=== PATIENT | male | born 1975 | race Native Hawaiian/Other Pacific Islander ===

== ENCOUNTER 2022-11-05 03:24 | Emergency (ER) | payer SELFPAY ==
[2022-11-05] VITALS (19 sets, daily range): BP systolic 130–150; BP diastolic 87–118; PULSE 86–110; RESP 14–39; TEMP 37; O2SAT 98
--- NOTE | 2022-11-05 03:15 | RT.EKG_ITS ---
APPROVED REPORT Exam: Resting ECG Reason for Exam: short of breath Patient Location: E HR:101 bpm ECG Measurements Heart Rate 101 AXIS SD 154 P 38 QRSd 84 QRS 51 QT 346 T 14 QTc 450 Conclusion Sinus tachycardia. Probable left atrial enlargement.
--- NOTE | 2022-11-05 03:30 | DI.RAD_ITS ---
Exam(s) XR PORTABLE CHEST AP EXAM: XR PORTABLE CHEST AP CLINICAL HISTORY: cough, fever TECHNIQUE: 2D digital imaging was performed of the chest. One image was obtained. An AP view was ob tained. COMPARISON: No exams were available for comparison FINDINGS: MEDIASTINUM: Normal. HEART: Normal. PULMONARY VASCULATURE: Normal. LUNGS: Clear. PLEURAL SPACE: No pleural effusion or pneumothorax. BONE:Within normal limits for the patient's age. OTHER FINDINGS:Normal. IMPRESSION: No acute pulmonary findings. DATA REPOSITORY: RADIATION DOSE DELIVERED:
--- NOTE | 2022-11-05 03:35 | ED.GENADUL_ITS ---
Discharge Plan Disposition Patient Disposition: Home Condition: Improving Discharge Details Clinical Impression: Influenza A Primary Care Provider: [facility] Provider: Alex Thompson Home Meds and New Rx's Prescriptions: New codeine sulfate 15 mg tablet 15 mg PO TID PRN (Reason: cough) Qty: 10 0RF Discharge Instructions Instructions: Influenza (ED) Additional Instructions: Your work-up was positive for influenza A. Small, frequent sips of fluids to maintain hydration. Tylenol and/or ibuprofen as needed for aches, pains or fever. Use codeine as prescribed if needed for persistent coughing and for rest. Return to the emergency department for any acute concerns. Medical Decision Making 47-year-old male presents from home via EMS. He has had 5 days of upper respiratory illness with cough, congestion, fever and chills, mild headache. Tonight he had a coughing episode and had a near syncopal episode which caused him to panic and call 911. EMS evaluated the patient and brought him to the ER. He arrives afebrile with a pulse of approximately 100 blood pressure 149/95 and oxygenation is 98% on room air. 's includes pneumonia, bronchitis, dehydration. Patient IV access established, screening labs obtained and referred for viral testing and chest x-ray. Chest x-ray without focal infiltrate and no acute disease. Patient noted to have white count of 10, hematocrit 49, platelets 220. Sodium slightly low at 128, potassium 3.3, chloride 89, bicarb 23, BUN 16, creatinine 1.0. Glucose slightly elevated at 278. Magnesium 1.6 and supplemented in the ER. Troponin negative. Patient positive for influenza A. He is improved following IV fluids. He requests antitussive for comfort at home. He is stable and improved at this time. HPI General Mode of arrival: EMS . Date/Time Provider Initiated Documentation: 11/05/22 03:37 . Limitations to Documentation: no limitations . Information obtained by: patient and EMS . History of Present Illness 47 year old M presents to the emergency department with the chief complaint of 5 days upper respiratory illness with fever and cough, possible syncopex1, described as moderate, and is localized to the chest. Patient reports no radiation. Patient started experiencing this day(s) and it has been intermittent. No relieving factors improve symptom(s), No exacerbating factors reported . Patient notes cough, fever/chills, headaches, malaise and syncope; denies confusion, chest pain and seizure. Patient did receive the following treatments prior to arrival, NSAID Related Data Home Medications Medication Instructions Recorded Confirmed codeine sulfate 15 mg tablet 15 mg PO TID PRN cough #10 tabs 11/05/22 Previous Rx's Medication Instructions Recorded codeine sulfate 15 mg tablet 15 mg PO TID PRN cough #10 tabs 11/05/22 General Stated Complaint: RespSymp JING: 3 Review of Systems Narrative: 7 systems reviewed and otherwise negative PFSH All Active Problems (Updated 11/05/22 @ 05:29 by Alex Thompson MD) Influenza A (Acute) Social History Smoking/Tobacco Use Status: Never Smoking risk assessment performed?: Yes Alcohol Intake: current Alcohol Intake frequency: a few times a month Alcohol type: beer Drug use: Never Substance use type: does not use Do you feel safe at home: Yes Do you feel safe in your relationship?: Yes Exam Narrative Exam Narrative: GEN: awake, alert, oriented 3. Pleasant, well groomed, interactive. HEAD: Normocephalic, atraumatic ENT: Mucous membranes dry, oropharynx unremarkable, External ear exam unremarkable EYES: PERRL, EOMI NECK: Full ROM, no AL, no menigismus CHEST/RESP: Nontender, clear to auscultation bilateral, no wheeze/rhonchi/rales CARDIOVASCULAR: Regular and borderline tachycardic, no murmur, rub mirza. 2+ Rad pulse bilateral ABDOMEN: Soft, nontender, no mass. +Bowel sounds EXT: Full ROM, no edema, no rash Neuro: Grossly normal neurologic exam, conversant, interactive. Psych: Speech fluent, thoughts congruent, affect normal Course Vital Signs Vital signs: Vital Signs Temperature 37 C 11/05/22 03:25 Pulse 101 H 11/05/22 03:25 Respiratory Rate 24 11/05/22 03:25 Blood Pressure 149/95 H 11/05/22 03:25 Pulse Oximetry 98 11/05/22 03:25 Temperature 37 C 11/05/22 03:25 Temperature Source Temporal Artery Scan 11/05/22 03:25 Pulse 101 H 11/05/22 03:25 Respiratory Rate 24 11/05/22 03:25 Blood Pressure 149/95 H 11/05/22 03:25 Pulse Oximetry 98 11/05/22 03:25 Oxygen Delivery Method Room Air 11/05/22 03:25 Oxygen Flow Rate 0 11/05/22 03:25 Pain Level 7 11/05/22 03:25
[2022-11-05 03:37] LABS: Abs Immature Grans 0.03 10^3/uL (0.0-0.06); Absolute Basophil Count 0.03 10^3/uL (0.0-0.2); Absolute Eosinophil Count 0.01 10^3/uL (0.0-0.7); Absolute Lymphocyte Count 2.13 10^3/uL (1.2-3.4); Absolute Monocyte Count 1.42 10^3/uL (0.1-0.8); Basophils % 0.3; Eosinophils % 0.1; HCT 49.7 % (40.0-50.0); HGB 17.1 g/dL (13.5-17.5); Immature Grans % 0.3; Lymphocytes % 19.5; MCH 29.7 pg (27.0-33.0); MCHC 34.4 % (32.0-36.0); MCV 86 fL (80-95); MPV 9.5 fL (8.0-11.0); Neutrophils % 66.8; Platelet Count 220 10^3/uL (130-400); RBC 5.75 10^6/uL (4.36-5.78); RDW 11.8 % (11.8-14.1); RDW-SD 37.6 fL; WBC 10.94 10^3/uL (4.4-10.8)
[2022-11-05 03:38] LABS: Absolute Neutrophil Count 7.31 10^3/uL (1.2-6.7)
[2022-11-05] MEDS: ACETAMINOPHEN 1,000 MG/100 ML BTL 400 MG IVPB (03:57)
[2022-11-05] MEDS: Normal Saline 1,000 ML 1000 ML IV ×2 (03:58→04:40)
[2022-11-05 04:01] LABS: ALT 20 U/L (16-63); AST 23 U/L (15-37); Albumin 3.2 g/dL (3.4-5.0); Alkaline Phosphatase 93 U/L (46-116); Anion Gap 15.4 mmol/L (3-11); BUN 16 mg/dL (7-18); Bilirubin, Total 1.1 mg/dL (0.2-1.0); CO2 23.6 mmol/L (21.0-32.0); Chloride 89 mmol/L (98-107); Estimated GFR 93.42 (mL/min/1.73m2); Glucose 278 mg/dL (74-106); Magnesium 1.6 mg/dL (1.8-2.4); Potassium 3.3 mmol/L (3.5-5.1); Sodium 128 mmol/L (136-145); Total Protein 8.4 g/dL (6.4-8.2); Troponin I < 50 ng/L (<or=60)
[2022-11-05] MEDS: MAGNESIUM SULFATE 1 GM/100 ML BAG IVPB (04:10)
[2022-11-05 04:39] LABS: COVID-19 PCR Negative (Negative); Influenza A PCR Positive (Negative); Influenza B PCR Negative (Negative); RSV PCR Negative (Negative)
--- NOTE | 2022-11-05 04:40 | DI.VRAD_ITS ---
PROCEDURE INFORMATION: Exam: XR Chest Exam date and time: 11/05/2022 3:30 AM Age: 47 years old Clinical indication: Cough and fever; Additional info: Cough, fever TECHNIQUE: Imaging protocol: Radiologic exam of the chest. Views: 1 view. COMPARISON: No relevant prior studies available. FINDINGS: Lungs: Suboptimal lung expansion. No consolidation. Pleural spaces: Unremarkable. No pleural effusion. No pneumothorax. Heart/Mediastinum: Unremarkable. No cardiomegaly. Bones/joints: Degenerative changes. IMPRESSION: No acute findings. Dictated and Authenticated by: Golden Krause MD. Ordering:DANYA Johnson MD
[2022-11-05 05:12] LABS: Source Nasopharynx
--- NOTE | 2022-11-05 10:48 | NUR.NOTE ---
Nursing Note: Dr. Baum approved liquid dosing of codeine as pharmacy does not have the tablets. Spoke to Sid at [facility].
== END 2022-11-05 07:59 | disposition home or self-care (01) ==
PROVIDERS: Emergency Provider Emergency Medicine
DX: J10.1 Influenza due to other identified influenza virus with other respiratory manifestations (principal); Z20.822 Contact with and (suspected) exposure to COVID-19
CPT/HCPCS: 36415; 80053; 87637; 93005; 96361; 96365; 96375; 99284; 71045; 83735; 84484; 85025; 93010; J0131; J3475